=== PATIENT | female | born 1975 | race Caucasian/White ===

== ENCOUNTER 2019-03-31 18:46 | Emergency (ER) | payer MEDICAID ==
[~2019-03-31] VITALS: Ht 167.6 cm; Wt 72.6 kg
[2019-03-31 18:50] VITALS: Ht 167.6 cm; Wt 72.6 kg
[2019-03-31] MEDS ORDERED: BAYER CHEWABLE81 MG PO (18:59)
[2019-03-31] MEDS ORDERED: RANITIDINE HCL150 M1 PO (18:59)
[2019-03-31] MEDS ORDERED: ZANTAC300 MG PO (19:00)
[2019-03-31] MEDS ORDERED: KEPPRA750 MG PO (19:00)
[2019-03-31] MEDS ORDERED: METOPROLOL TART50 MG PO (19:01)
[2019-03-31] MEDS ORDERED: LIPITOR40 MG PO (19:02)
[2019-03-31] MEDS ORDERED: TAPAZOLE 5 MG TA5 MG PO (19:02)
[2019-03-31 20:43] LABS: BASOPHILS 0.3 % (0-2); EOSINOPHILS 3.1 % (0-7); HEMATOCRIT 37.5 % (36.0-48.0); HEMOGLOBIN 12.6 g/dL (12-16); IMMATURE GRANULOCYTES 0.2 % (0-5); LYMPHOCYTES 42.2 % (15-50); MCH 28.5 pg (26.0-34.0); MCHC 33.6 g/dL (31.0-37.0); MCV 84.8 fL (80.0-100.0); MEAN PLATELET VOLUME 10.2 fL (7.4-10.4); MONOCYTES 7.3 % (2-11); NEUTROPHILS 46.9 % (40-80); PLATELET COUNT 231 10x3/uL (130-400); RBC 4.42 10x6/uL (4.00-5.40); RDW 13.1 % (11.5-14.5); WBC 6.5 10x3/uL (4.8-10.8)
[2019-03-31 21:01] LABS: ALBUMIN 3.7 g/dL (3.4-5.0); ALKALINE PHOSPHATASE 128 U/L (46-116); ALT (SGPT) 63 U/L (10-68); BILIRUBIN - TOTAL 0.28 mg/dL (0.2-1.3); CALC OSMOLALITY 287 mosm/kg (275-300); CALCIUM 8.9 mg/dL (8.5-10.1); CARBON DIOXIDE 27.9 mmol/L (21.0-32.0); CHLORIDE - SERUM 107 mmol/L (98-107); GLUCOSE 94 mg/dL (74-106); POTASSIUM - SERUM 3.9 mmol/L (3.5-5.1); PROTEIN - SERUM 7.6 g/dL (6.4-8.2); SODIUM 145 mmol/L (136-145); UREA NITROGEN 10 mg/dL (7-18)
[2019-03-31 21:06] LABS: CREATININE - SERUM 0.8 mg/dL (0.6-1.3); eGFR NON AFRICAN AMERICAN 84 mL/min (90-120)
[2019-03-31 22:20] VITALS: BP 138/69
== END 2019-03-31 22:20 | disposition home or self-care (01) ==
LOC: D.ER 18:46
PROVIDERS: Family Medicine
DX: G40.909 Epilepsy, unspecified, not intractable, without status epilepticus (principal)